=== PATIENT | male | born 1955 | race Caucasian/White ===

== ENCOUNTER 2022-08-10 12:17 | Emergency (ER) | payer SELFPAY ==
--- OUTSIDE RECORDS SUMMARY | 2022-08-10 12:20 | XMS REPORT | Continuity of Care Document ---
:1955 Author Organization [facility] t Address [address] [place] [address] Care Team Providers Name Role Phone BANDAR SIMEON Primary Care Physician Unavailable DR SUSANA AGUILERA Attending Clinician Unavailable [phone] Attending Clinician Unavailable [phone] Attending Clinician Unavailable DR BANDAR SIMEON Attending Clinician Unavailable [phone] Attending Clinician Unavailable [id number] Attending Clinician Unavailable DR SUSANA AGUILERA Admitting Clinician Unavailable DR BANDAR SIMEON Admitting Clinician Unavailable Payers Payer Name Policy Type Policy Number Effective Date Expiration Date S ource BLUE CROSS BLUE [id number] SHIELD - OP BLUE CROSS BLUE [id number] SHIELD - OP Problems This patient has no known problems. Allergies, Adverse Reactions, Alerts Allergy Allergy Status Severity Reaction(s) Onset Inactive Treating Comm ents Source Name Type Date Date Clinician No Known MA Active UNKNOWN [facility] Medications This patient has no known medications. Procedures This patient has no known procedures. Encounters Start End Encounter Admission Attending Care Care Encounter Source Date/Time Date/Time Type Type Clinicians Facility Department ID 2021-08-28 Outpatient SUSANA AGUILERA [facility] [id number] [place] 11:25:49 [id number] [place] [id number] [facility] 2021-08-17 2021-08-17 Emergency E BANDAR SIMEON EMERG[facility] [id number] 19:35:00 22:49:00 [id number] ROOM [facility] po [id number] [facility] Results This patient has no known results.
[2022-08-10] MEDS ORDERED: LEVALBUTEROL 1.25 MG/3 ML NEB ONE (13:17)
--- NOTE | 2022-08-10 13:35 | RAD REPORT ---
EXAM DESCRIPTION: RAD - Chest Single View - 08/10/2022 1:27 pm CLINICAL HISTORY: cough, sob COMPARISON: No comparisons FINDINGS: Lines: None. Lungs: No evidence of edema or pneumonia. Pleural: No significant pleural effusions or pneumothorax. Cardiac: The heart size is within normal limits. Mediastinum: Within normal limits. Bones: No acute fractures. Other: None IMPRESSION: No acute cardiopulmonary disease.
[2022-08-10 14:27] LABS: SARS-COV-2 RT PCR NEGATIVE (NEGATIVE)
--- NOTE | 2022-08-10 14:49 | EDPHYS ---
Physician Documentation [facility] Name: Trav Peñaloza Age: 66 yrs Sex: Male : 1955 Arrival Date: 08/10/2022 Time: 12:20 Bed 18 Private MD: ED Physician Martinez Gunn HPI: 08/10 12:44 This 66 yrs old Male presents to ER via Ambulatory with complaints of Congestion, Sore jmm Throat. 12:44 The patient or guardian reports cough. Onset: The symptoms/episode began/occurred jmm gradually, 3 day(s) ago. Modifying factors: The symptoms are alleviated by nothing. the symptoms are aggravated by nothing. Associated signs and symptoms: Pertinent positives:. Is a 66-year-old male with history of hypertension the presents emerged department complaints of cough, congestion states symptoms are worsened when he is awake. Patient has taken Mucinex without relief. Denies fever. States having some sore throat.. Historical: - Allergies: 12:41 No Known Allergies; ss - Home Meds: 12:41 lisinopril-hydrochlorothiazide 20-25 mg oral tab 1 tab once daily for hypertension ss [Active]; - PMHx: 12:41 Hypertensive disorder; ss - PSHx: 12:41 None; ss - Immunization history:: Client reports having NOT received the Covid vaccine. - Social history:: Smoking status: Patient reports use of chewing tobacco. ROS: 12:44 Constitutional: Negative for fever, chills, and weight loss, Cardiovascular: Negative jmm for chest pain, palpitations, and edema. 12:44 ENT: Positive for sore throat. 12:44 Respiratory: Positive for cough. 12:44 All other systems are negative. Exam: 12:44 Constitutional: This is a well developed, well nourished patient who is awake, alert, jmm and in no acute distress. Head/Face: atraumatic. Eyes: EOMI, no conjunctival erythema appreciated ENT: Moist Mucus Membranes Neck: Trachea midline, Supple Chest/axilla: Normal chest wall appearance and motion. Cardiovascular: Regular rate and rhythm. No edema appreciated Respiratory: Normal respirations, no respiratory distress appreciated Abdomen/GI: Non distended Back: Normal ROM Skin: General appearance color normal MS/ Extremity: Moves all extremities, no obvious deformities appreciated, no edema noted to the lower extremities Neuro: Awake and alert Psych: Behavior is normal, Mood is normal, Patient is cooperative and pleasant Vital Signs: 12:38 BP 202 / 96; Pulse 96; Resp 19; Temp 98.2(TE); Pulse Ox 99% on R/A; Weight 79.38 kg; ss Height 6 ft. 0 in. (182.88 cm); 15:09 BP 185 / 89; Pulse 87; Resp 18; Temp 97.9; Pulse Ox 99% on R/A; ph 12:38 Body Mass Index 23.73 (79.38 kg, 182.88 cm) ss MDM: 12:44 Patient medically screened. isreal 14:47 Data reviewed: vital signs, nurses notes, lab test result(s), radiologic studies. I usman considered the following discharge prescriptions or medication management in the emergency department Medications were administered in the Emergency Department. See MAR. Independent interpretation of the following test(s) in the Emergency Department X-Ray: My interpretation is An infiltrate is not appreciated. Counseling: I had a detailed discussion with the patient and/or guardian regarding: the historical points, exam findings, and any diagnostic results supporting the discharge/admit diagnosis, lab results, the need for outpatient follow up, to return to the emergency department if symptoms worsen or persist or if there are any questions or concerns that arise at home. 08/10 13:01 Order name: COVID-19/FLU A+B; Complete Time: 14:32 [facility] 08/10 13:01 Order name: Strep; Complete Time: 13:59 [facility] 08/10 13:01 Order name: Chest Single View XRAY; Complete Time: 13:36 [facility] 08/10 13:57 Order name: Throat Culture EDMS Administered Medications: 13:22 Drug: Xopenex (levalbuterol) (3) 1.25 mg Route: Inhalation; ph 15:10 Follow up: Response: No adverse reaction ph 15:06 Drug: Lisinopril 20 mg Route: PO; ph 15:10 Follow up: Response: No adverse reaction ph 15:06 Drug: Decadron (dexamethasone) 10 mg Route: IM; Site: right deltoid; ph 15:10 Follow up: Response: No adverse reaction ph Disposition Summary: 08/10/22 14:49 Discharge Ordered Location: Home [facility] Condition: Stable [facility] Diagnosis - Cough jm Followup: jm - With: Private Physician - When: 2 - 3 days - Reason: Recheck today's complaints, Continuance of care, Re-evaluation by your physician Discharge Instructions: - Discharge Summary Sheet jm - Cough, Adult jm Forms: - Medication Reconciliation Form [facility] - Thank You Letter [facility] - Antibiotic Education jm - Prescription Opioid Use [facility] Prescriptions: - Zithromax Z-Jason 250 mg Oral Tablet - take 1 tablet by ORAL route as directed for 5 days Day 1 - take two (2) tablets jmm one time. Day 2, 3, 4 , 5 take one (1) tablet once daily.; 6 tablet; Refills: 0, Product Selection Permitted - Medrol (Jason) 4 mg Oral Tablets, Dose Pack - take 1 tablet by ORAL route as directed - follow package instructions; 1 jmm packet; Refills: 0, Product Selection Permitted - albuterol sulfate 90 mcg/actuation Inhalation HFA aerosol inhaler - inhale 2 puff by INHALATION route every 6 hours; 1 Pump; Refills: 0, Product [facility] Selection Permitted - Lisinopril-Hydrochlorothiazide 20-25 mg Oral Tablet - take 1 tablet by ORAL route once daily; 20 tablet; Refills: 0, Product jm Selection Permitted Signatures: Dispatcher [employer] Martinez Heard MD MD cha Mickail, Joel, PA PA jmm Smirch, Shelby, TOM RN Clover Art RN RN ph
--- NOTE | 2022-08-10 14:49 | ER ---
Nurse's Notes [facility] Name: Trav Peñaloza Age: 66 yrs Sex: Male : 1955 Arrival Date: 08/10/2022 Time: 12:20 Bed 18 Private MD: Diagnosis: Cough Presentation: 08/10 12:38 Chief complaint: Patient states: sore throat and chest congestion that began 5 days ss ago. Denies fever/ SOB. Coronavirus screen: Client denies travel out of the [place] in the last 14 days. Client presents with at least one sign or symptom that may indicate coronavirus-19. Ebola Screen: Patient denies exposure to infectious person. Patient denies travel to an Ebola-affected area in the 21 days before illness onset. Initial Sepsis Screen: Does the patient meet any 2 criteria? No. Patient's initial sepsis screen is negative. Does the patient have a suspected source of infection? No. Patient's initial sepsis screen is negative. Risk Assessment: Do you want to hurt yourself or someone else? Patient reports no desire to harm self or others. Onset of symptoms was August 07, 2022. 12:38 Method Of Arrival: Ambulatory ss 12:38 Acuity: DAMIÁN 3 ss Historical: - Allergies: 12:41 No Known Allergies; ss - Home Meds: 12:41 lisinopril-hydrochlorothiazide 20-25 mg oral tab 1 tab once daily for hypertension ss [Active]; - PMHx: 12:41 Hypertensive disorder; ss - PSHx: 12:41 None; ss - Immunization history:: Client reports having NOT received the Covid vaccine. - Social history:: Smoking status: Patient reports use of chewing tobacco. Screenin:05 [facility] ED Fall Risk Assessment (Adult) History of falling in the last 3 months, ph including since admission No falls in past 3 months (0 pts) Confusion or Disorientation No (0 pts) Intoxicated or Sedated No (0 pts) Impaired Gait No (0 pts) Mobility Assist Device Used No (0 pt) Altered Elimination No (0 pt) Score/Fall Risk Level 0 - 2 = Low Risk Oriented to surroundings, Maintained a safe environment, Hourly rounding (assess needs \T\ fall precautionary measures) done. Abuse screen: Denies threats or abuse. Denies injuries from another. Nutritional screening: No deficits noted. Tuberculosis screening: No symptoms or risk factors identified. Assessment: 14:04 General: Appears in no apparent distress. comfortable, well groomed, Behavior is calm, ph cooperative, appropriate for age, Denies fever, chills. Pain: Denies pain. Neuro: Level of Consciousness is awake, alert, obeys commands, Oriented to person, place, time, situation. Cardiovascular: Denies chest pain, shortness of breath, Capillary refill < 3 seconds in bilateral fingers Patient's skin is warm and dry. Respiratory: Airway is patent Respiratory effort is even, unlabored, Respiratory pattern is regular, symmetrical, Breath sounds are coarse in mediastinum Denies shortness of breath. GI: No signs and/or symptoms were reported involving the gastrointestinal system. EENT: Reports pain when swallowing. Derm: Skin is healthy with good turgor, Skin is pink, warm \T\ dry. Vital Signs: 12:38 BP 202 / 96; Pulse 96; Resp 19; Temp 98.2(TE); Pulse Ox 99% on R/A; Weight 79.38 kg; ss Height 6 ft. 0 in. (182.88 cm); 15:09 BP 185 / 89; Pulse 87; Resp 18; Temp 97.9; Pulse Ox 99% on R/A; ph 12:38 Body Mass Index 23.73 (79.38 kg, 182.88 cm) ED Course: 12:20 Patient arrived in ED. rg4 12:28 Walker Carr PA is PHCP. m 12:28 Martinez Gunn MD is Attending Physician. [facility] 12:41 Triage completed. ss 12:41 Arm band placed on right wrist. ss 12:43 Clover Art, RN is Primary Nurse. ph 13:22 Strep Sent. ph 13:22 COVID-19/FLU A+B Sent. ph 13:29 Chest Single View XRAY In Process Unspecified. EDMS 14:05 Patient has correct armband on for positive identification. Bed in low position. Call ph light in reach. Side rails up X 1. Door closed. Noise minimized. 14:06 Patient did not have IV access during this emergency room visit. ph 15:09 No provider procedures requiring assistance completed. ph Administered Medications: 13:22 Drug: Xopenex (levalbuterol) (3) 1.25 mg Route: Inhalation; ph 15:10 Follow up: Response: No adverse reaction ph 15:06 Drug: Lisinopril 20 mg Route: PO; ph 15:10 Follow up: Response: No adverse reaction ph 15:06 Drug: Decadron (dexamethasone) 10 mg Route: IM; Site: right deltoid; ph 15:10 Follow up: Response: No adverse reaction ph Medication: 14:05 VIS not applicable for this client. ph Outcome: 14:49 Discharge ordered by MD. mary 15:09 Discharged to home ambulatory, with family. ph 15:09 Condition: good 15:09 Discharge instructions given to patient, Instructed on discharge instructions, follow up and referral plans. medication usage, Demonstrated understanding of instructions, follow-up care, medications, Prescriptions given X 4. 15:10 Patient left the ED. ph Signatures: Dispatcher [employer] EDMS Walker Carr PA PA jmm Smirch, Shelby, RN RN Clover Art RN RN ph Garcia, Rubi rg4
[2022-08-10] MEDS ORDERED: lisinopriL 20 MG TAB ONE (15:03)
[2022-08-10] MEDS ORDERED: dexAMETHasone 10 MG/ML VIAL ONE (15:03)
[2022-08-10 15:23] VITALS: O2SAT 99
[2022-08-10 15:24] VITALS: BP 185/89; TEMP 97.9
== END 2022-08-10 15:10 | disposition home or self-care (01) ==
LOC: ER 12:17
DX: R05.9 Cough, unspecified (principal); R07.0 Pain in throat; I10 Essential (primary) hypertension; Z20.822 Contact with and (suspected) exposure to COVID-19
CPT/HCPCS: 0240U; 71045; 87070; 87081; 96372; 99284; J1100; J7614

== ENCOUNTER 2024-05-06 17:04 | Emergency (ER) | payer SELFPAY ==
--- OUTSIDE RECORDS SUMMARY | 2024-05-06 17:06 | XMS REPORT | Continuity of Care Document ---
Author Name Unknown Address [address] [facility] [place] [place] [address] [facility] Address [address] [facility] [place] [place] [address] Care Team Providers Care Stretch Box Tender Name Role Phone BANDAR SIMEON Primary Care Physician Unavailab DR SUSANA Nicholson Attending Clinician Unavailable [phone] Attending Clinician Unavailable [id number] Attending Clinician Unavailable DR BANDAR SIMEON Attending Clinician Unavailable [phone] Attending Clinician Unavailable [id number] Attending Clinician Unavailable DR SUSANA AGUILERA Admitting Clinician Unavailable DR BANDAR SIMEON Admitting Clinician Unavailable Payers Payer Name Policy Type Policy Number Effective Date Expirati on Date Source BLUE CROSS BLUE SHIELD - OP [id number] BLUE CROSS BLUE SHIELD - OP [id number] Allergies, Adverse Reactions, Alerts Allergy Name Allergy Type Status Severity Reaction(s) Onset Date Inactive Date Treating Clinician Comments Source No Known Drug Allergie s MA Active UNKNOWN [facility] Encounters Start Date/Time End Date/Time Encounter Type Admission Type Attending Clinicians Care Facility Care Department Encounter ID Source 2021-08-28 11:25:49 Outpatient SUSANA AGUILERA [id number] [facility] [id number] [facility] 2021-08-17 19:35:00 2021-08-17 22:49:00 Emergency E BANDAR SIMEON [id number] [facility] RO[facility] [id number] [facility]
--- NOTE | 2024-05-06 17:28 | ER ---
Nurse's Notes [facility] Name: Trav Peñaloza Age: 68 yrs Sex: Male : 1955 Arrival Date: 05/06/2024 Time: 17:04 Bed DX3 Private MD: Diagnosis: Onychomycosis;Cellulitis of right toe Presentation: 05/06 17:10 Chief complaint:. Chief complaint: Patient states: right foot and right big toe in tm6 pain, for 6 months. Toe is swollen and red. I think the toe nail is growing wrong, it looks like a tree root, or a fungus. I noticed it swelling and red about a week ago. Coronavirus screen: Client denies travel out of the [place] in the last 14 days. Ebola Screen: Patient negative for fever greater than or equal to 101.5 degrees Fahrenheit, and additional compatible Ebola Virus Disease symptoms Patient denies exposure to infectious person. Patient denies travel to an Ebola-affected area in the 21 days before illness onset. No symptoms or risks identified at this time. Onset of symptoms was April 29, 2024. 17:10 Method Of Arrival: Ambulatory tm6 17:33 Initial Sepsis Screen: Does the patient meet any 2 criteria? HR > 90 bpm. No. Patient's tm6 initial sepsis screen is negative. Does the patient have a suspected source of infection? No. Patient's initial sepsis screen is negative. Risk Assessment: Do you want to hurt yourself or someone else? Patient reports no desire to harm self or others. 17:33 Acuity: DAMIÁN 5 tm6 Triage Assessment: 17:11 General: Appears in no apparent distress. uncomfortable, Behavior is calm, cooperative. tm6 Pain: Complains of pain in right first toe and Right first toenail Pain began 6 months ago, worsening 1 week ago. EENT: No signs and/or symptoms were reported regarding the EENT system. Neuro: Level of Consciousness is awake, alert, obeys commands, Oriented to person, place, time, situation. Cardiovascular: Patient's skin is warm and dry. Respiratory: Airway is patent Respiratory effort is even, unlabored, Respiratory pattern is regular, symmetrical. GI: No signs and/or symptoms were reported involving the gastrointestinal system. Abdomen is flat, non-distended. : No signs and/or symptoms were reported regarding the genitourinary system. Derm: toe nail growing up, redness and swelling to right great toe. Musculoskeletal: Reports pain in right first toe and Right first toenail. Historical: - Allergies: 17:15 No Known Allergies; tm6 - PMHx: 17:11 Hypertensive disorder; tm6 - PSHx: 17:15 None; tm6 - Immunization history:: Client reports having NOT received the Covid vaccine. - Infectious Disease History:: Denies. - Social history:: Smoking status: Patient reports use of chewing tobacco. Patient uses alcohol, occasionally. Screenin:33 [facility] ED Fall Risk Assessment (Adult) History of falling in the last 3 months, tm6 including since admission No falls in past 3 months (0 pts) Confusion or Disorientation No (0 pts) Intoxicated or Sedated No (0 pts) Impaired Gait No (0 pts) Mobility Assist Device Used No (0 pt) Altered Elimination No (0 pt) Score/Fall Risk Level 0 - 2 = Low Risk Oriented to surroundings, Maintained a safe environment, Educated pt \T\ family on fall prevention, incl call for assistance when getting out of bed. Abuse screen: Denies threats or abuse. Denies injuries from another. Nutritional screening: No deficits noted. Tuberculosis screening: No symptoms or risk factors identified. Assessment: 17:28 Reassessment: see triage assessment. tm6 Vital Signs: 17:14 BP 185 / 94; Pulse 102; Resp 19; Temp 99.4(O); Pulse Ox 98% on R/A; MAP 120 mmHg; tm6 Weight 83.91 kg; Height 5 ft. 11 in. ; Pain 6/10; 17:14 Body Mass Index 25.80 (83.91 kg, 180.34 cm) tm6 17:14 Pain Scale: Adult tm6 ED Course: 17:07 Patient arrived in ED. im 17:09 Franky Roberts DO is Attending Physician. ms3 17:15 Arm band placed on right wrist. tm6 17:27 Adama Hinton DPM is Referral Physician. ms3 17:27 Aleksandar Mark DPM is Referral Physician. ms3 17:33 Patient has correct armband on for positive identification. Provided Education on: tm6 follow up with podiatry. 17:33 No provider procedures requiring assistance completed. Patient did not have IV access tm6 during this emergency room visit. 17:34 Triage completed. tm6 Administered Medications: 17:32 Drug: Doxycycline PO 100 mg PO once Route: PO; tm6 17:33 Follow up: Response: Medication administered at discharge. tm6 Medication: 17:33 VIS not applicable for this client. tm6 Outcome: 17:28 Discharge ordered by . ms3 17:33 Discharged to home ambulatory, with family, tm6 17:33 Condition: stable 17:33 Discharge instructions given to patient, family, Instructed on discharge instructions, follow up and referral plans. medication usage, Demonstrated understanding of instructions, follow-up care, medications, Prescriptions given X 1, 17:34 Patient left the ED. tm6 Signatures: Franky Roberts DO DO ms3 Irene Bee Tawney, RN RN tm6 Corrections: (The following items were deleted from the chart) 17:23 17:11 Pain: Complains of pain in left first toe and Left first toenail Pain began 6 tm6 months ago, worsening 1 week ago tm6 17:23 17:11 Derm: toe nail growing up, redness and swelling to left great toe tm6 tm6 17:23 17:11 Musculoskeletal: Reports pain in left first toe and Left first toenail tm6 tm6
--- NOTE | 2024-05-06 17:28 | EDPHYS ---
Physician Documentation [facility] Name: Trav Peñaloza Age: 68 yrs Sex: Male : 1955 Arrival Date: 05/06/2024 Time: 17:04 Bed DX3 Private MD: ED Physician Franky Roberts HPI: 05/06 17:30 This 68 yrs old Male presents to ER via Ambulatory with complaints of Foot Pain - right ms3 big toe. 17:30 68 year old male presents to the Emergency Department with a right great toe that has ms3 been red and painful for about a week. The patient describes the toenail as growing upwards instead of outwards for about a year. The pain was rated at 6 to 7 out of 10, making it difficult to walk and bend the toe. The patient noted that walking aggravated the pain. The patient also reported using ibuprofen about an hour before arrival. The patient did not report any similar symptoms in the other foot, which was simply hard and dry.. Historical: - Allergies: 17:15 No Known Allergies; tm6 - PMHx: 17:11 Hypertensive disorder; tm6 - PSHx: 17:15 None; tm6 - Immunization history:: Client reports having NOT received the Covid vaccine. - Infectious Disease History:: Denies. - Social history:: Smoking status: Patient reports use of chewing tobacco. Patient uses alcohol, occasionally. ROS: 17:30 Constitutional: Negative for fever, and chills. Neck: Negative for injury, pain, and ms3 swelling, Cardiovascular: Negative for chest pain, and palpitations. Respiratory: Negative for shortness of breath, cough, wheezing, and pleuritic chest pain, Abdomen/GI: Negative for abdominal pain, nausea, vomiting, diarrhea, and constipation, 17:30 MS/extremity: Positive for right great toe pain, Exam: 17:30 Constitutional: This is a well developed, well nourished patient who is awake, alert, ms3 and in no acute distress. Chest/axilla: Normal chest wall appearance and motion. Nontender with no deformity. Cardiovascular: Regular rate and rhythm with a normal S1 and S2. No gallops, murmurs, or rubs. Normal PMI, no JVD. No pulse deficits. Respiratory: Lungs have equal breath sounds bilaterally, clear to auscultation and percussion. No rales, rhonchi or wheezes noted. No increased work of breathing, no retractions or nasal flaring. Abdomen/GI: Soft, non-tender, with normal bowel sounds. No distension or tympany. No guarding or rebound. No evidence of tenderness throughout. 17:30 Musculoskeletal/extremity: Extremities: noted in the right great toe: erythema, swelling, tenderness, No signs of abscess formation, Vital Signs: 17:14 BP 185 / 94; Pulse 102; Resp 19; Temp 99.4(O); Pulse Ox 98% on R/A; MAP 120 mmHg; tm6 Weight 83.91 kg; Height 5 ft. 11 in. ; Pain 6/10; 17:14 Body Mass Index 25.80 (83.91 kg, 180.34 cm) tm6 17:14 Pain Scale: Adult tm6 MDM: 17:21 Medical Screening Exam initiated ms3 17:34 Differential diagnosis: gout, cellulitis. Data reviewed: vital signs, nurses notes, and ms3 as a result, I will discharge patient. I considered the following discharge prescriptions or medication management in the emergency department Medications were administered in the Emergency Department. See MAR. Care significantly affected by the following chronic conditions: Hypertension. Counseling: I had a detailed discussion with the patient and/or guardian regarding the historical points, exam findings, and any diagnostic results supporting the discharge/admit diagnosis, the need for outpatient follow up, to return to the emergency department if symptoms worsen or persist or if there are any questions or concerns that arise at home. Special discussion: I discussed with the patient/guardian in detail that at this point there is no indication for admission to the hospital. It is understood, however, that if the symptoms persist or worsen the patient needs to return immediately for re-evaluation. ED course: Discussed physical exam findings with patient and his daughter. They understand and agree with plan. Patient to follow-up with podiatry in 2 to 3 days. All questions were answered. Return precautions discussed include worsening symptoms, or any other concerns. Patient given prescription for doxycycline. Patient given first dose of medication in the emergency department as local pharmacies likely closed at this hour.. Administered Medications: 17:32 Drug: Doxycycline PO 100 mg PO once Route: PO; tm6 17:33 Follow up: Response: Medication administered at discharge. tm6 Disposition Summary: 05/06/24 17:28 Discharge Ordered Notes: Location: Home ms3 Condition: Stable ms3 Diagnosis - Onychomycosis ms3 - Cellulitis of right toe ms3 Followup: ms3 - With: Adama Hinton DPM - When: 2 - 3 days - Reason: Recheck today's complaints Followup: ms3 - With: Aleksandar Mark DPM - When: 2 - 3 days - Reason: Recheck today's complaints Discharge Instructions: - Discharge Summary Sheet ms3 - Cellulitis, Adult ms3 Forms: - Medication Reconciliation Form ms3 - Antibiotic Education ms3 - Prescription Opioid Use ms3 - Patient Portal Instructions ms3 - Leadership Thank You Letter ms3 Prescriptions: - Doxycycline Hyclate 100 mg Oral Tablet - take 1 tablet ORAL route every 12 hours; 20 tablet; Refills: 0, Product ms3 Selection Permitted Signatures: Franky Roberts DO DO ms3 Mahnaz Castorena RN RN tm6
[2024-05-06] MEDS ORDERED: DOXYCYCLINE 100 MG CAP PO ONE (17:30)
[2024-05-06 18:08] VITALS: BP 185/94; TEMP 99.4; O2SAT 98
== END 2024-05-06 17:34 | disposition home or self-care (01) ==
LOC: ER 17:04
DX: B35.1 Tinea unguium (principal); L03.115 Cellulitis of right lower limb
CPT/HCPCS: 99283